=== PATIENT | female | born 1980 | race Caucasian/White ===

== ENCOUNTER → 2016-07-05 | Outpatient (CLI) | payer OTHER ==
[~2016-07-05] MED LIST: COLACE 100MG C100 MG PO; FERROUS SULFAT325 M2 PO; IBUPROFEN600 MG PO; NORCO 5-325 TA1 EACH PO
== END ==
LOC: CT 09:09
DX: N28.1 Cyst of kidney, acquired (principal); Z90.710 Acquired absence of both cervix and uterus
CPT/HCPCS: J7050; Q9962

== ENCOUNTER → 2021-06-28 | Outpatient (CLI) | payer OTHER ==
[~2021-06-28] MED LIST changes: +ACYCLOVIR200 MG PO; +ESTRACE2 MG PO; +VITAMIN D31000 UNI1 PO
== END ==
LOC: MAMO 14:30
DX: Z12.31 Encounter for screening mammogram for malignant neoplasm of breast (principal); Z90.710 Acquired absence of both cervix and uterus; Z79.890 Hormone replacement therapy; R92.0 Mammographic microcalcification found on diagnostic imaging of breast
CPT/HCPCS: 77063; 77067